=== PATIENT | female | born 1965 | race Caucasian/White ===

== ENCOUNTER 2023-09-18 10:24 | Day surgery (SDC) | payer BC ==
[~2023-09-18 10:24] MED LIST: Sodium Chloride 0.9% 10 ML Syringe FLUSH PRN; Sodium Chloride 0.9% 10 ML Syringe FLUSH SCH
[2023-09-18] MEDS ORDERED: Propofol 200 MG/20 ML SDV ONE (12:38)
[2023-09-18] MEDS ORDERED: Rocuronium 50 MG/5 ML Vial ONE (12:38)
[2023-09-18] MEDS ORDERED: Midazolam 1 MG/ML 2 ML SDV ONE (12:38)
[2023-09-18] MEDS ORDERED: fentaNYL 100 MCG/2 ML SDV ONE (12:38)
[2023-09-18] MEDS ORDERED: Lidocaine 2% 5 ML SDV ONE (12:39)
[2023-09-18] MEDS: Lactated Ringers 1,000 ML IV SCH (13:05)
[2023-09-18] MEDS ORDERED: Lidocaine 1% with EPINEPHrine 1:100,000 20 ML MDV ONE (13:35)
[2023-09-18] MEDS ORDERED: EPINEPHrine 1 MG/ML SDV ONE ×2 (13:36→14:57)
[2023-09-18] MEDS ORDERED: Ketorolac 30 MG/ML SDV ONE (14:07)
[2023-09-18] MEDS ORDERED: Ondansetron 4 MG/2 ML SDV ONE (14:07)
[2023-09-18] MEDS ORDERED: Neostigmine Methylsulfate 10 MG/10 ML MDV ONE (14:10)
[2023-09-18] MEDS: Scopalamine 1mg/3day Transdermal Patch TOP ONE (14:12)
[2023-09-18] MEDS: Acetaminophen 325 MG Tab PO ONE (14:13)
[2023-09-18] MEDS: Gabapentin 300 MG Cap PO ONE (14:14)
[2023-09-18] MEDS: Clindamycin Phosphate in D5W 900 MG in Premix Bag 1 BAG IV ONE (14:15)
[2023-09-18] MEDS ORDERED: Bupivacaine 0.5% 30 ML SDV ONE (14:58)
[2023-09-18] MEDS: Bupivacaine 0.5% 30 ML SDV ONE (15:17)
[2023-09-18] MEDS: Lidocaine 1% with EPINEPHrine 1:100,000 20 ML MDV ONE (15:17)
[2023-09-18] MEDS ORDERED: Lactated Ringers 1,000 ML IV ONE (15:30)
[2023-09-18] MEDS ORDERED: HYDROmorphone 0.5 MG/0.5 ML Syringe IVPUSH PRN (15:55)
[2023-09-18] MEDS ORDERED: Ondansetron 4 MG/2 ML SDV IVPUSH PRN (15:55)
[2023-09-18] MEDS ORDERED: Acetaminophen/oxyCODONE 325-5 MG Tab PO PRN (16:13)
== END 2023-09-18 20:25 | disposition home or self-care (01) ==
LOC: JD.SDS 10:24
PROVIDERS: ATTEND Surgery
DX: K80.10 Calculus of gallbladder with chronic cholecystitis without obstruction (principal); F32.A Depression, unspecified; F41.9 Anxiety disorder, unspecified; K21.9 Gastro-esophageal reflux disease without esophagitis; E66.01 Morbid (severe) obesity due to excess calories; Z68.41 Body mass index [BMI] 40.0-44.9, adult; Z79.899 Other long term (current) drug therapy; Z88.0 Allergy status to penicillin; Z91.048 Other nonmedicinal substance allergy status
CPT/HCPCS: 47562; A9270; J0171; J0665; J0736; J1885; J2250; J2405; J2704; J2710; J3010; J3490; J7120; 00790

== ENCOUNTER 2023-09-21 13:59 | Emergency (ER) | payer BC ==
[2023-09-21] MEDS: Sodium Chloride 0.9% 1,000 ML IV SCH (14:43)
[2023-09-21] MEDS: Sodium Chloride 0.9% 10 ML Syringe FLUSH PRN (14:43)
[2023-09-21] MEDS: Ondansetron 4 MG/2 ML SDV IVPUSH ONE (14:49)
[2023-09-21 15:20] LABS: BASOPHILS PERCENT AUTO 0.5 % (0.0-1.0); EOSINOPHILS ABSOLUTE AUTO 0.5 K/mm3 (0.0-0.4); EOSINOPHILS PERCENT AUTO 6.8 % (0.0-6.0); HEMATOCRIT 38.5 % (37.0-47.0); HEMOGLOBIN 12.3 gm/dl (12.0-16.0); IMMATURE GRAN ABSOLUTE AUTO 0.03 K/mm3 (0.00-0.05); IMMATURE GRAN PERCENT AUTO 0.5 % (0.0-0.4); LYMPHOCYTES ABSOLUTE AUTO 1.8 K/mm3 (1.0-4.8); LYMPHOCYTES PERCENT AUTO 27.1 % (24.0-44.0); MEAN CORPUSCULAR HEMOGLOBIN 27.7 pg (28.0-32.0); MEAN CORPUSCULAR HGB CONC 31.9 g/dl (32.0-36.0); MEAN CORPUSCULAR VOLUME 86.7 fl (83.0-99.0); MEAN PLATELET VOLUME 10.1 fl (9.4-12.3); MONOCYTES ABSOLUTE AUTO 0.5 K/mm3 (0.0-0.8); NEUTROPHILS ABSOLUTE AUTO 3.8 K/mm3 (1.8-7.7); NEUTROPHILS PERCENT AUTO 57.1 % (41.0-71.0); PLATELET COUNT,PLT 260 K/mm3 (150-400); RED BLOOD CELL COUNT 4.44 M/mm3 (4.10-5.30); WHITE BLOOD CELL COUNT,WBC 6.64 K/mm3 (3.9-11.3)
[2023-09-21 15:33] LABS: A/G RATIO 0.9 (1-2); ALBUMIN 3.2 g/dl (3.4-5.0); ANION GAP 11.8 (5-15); BILIRUBIN TOTAL 0.9 mg/dL (0.2-1.0); CALCIUM 9.7 mg/dL (8.5-10.1); EST CRCL DRUG DOSING (CG) 56.71 mL/min; MAGNESIUM 2.1 mg/dL (1.8-2.4); POTASSIUM,K 3.8 mEq/L (3.5-5.1); PROTEIN TOTAL,TP 6.9 g/dl (6.4-8.2)
== END 2023-09-21 16:47 | disposition home or self-care (01) ==
LOC: JD.ED 13:59
DX: R03.0 Elevated blood-pressure reading, without diagnosis of hypertension (principal); R42 Dizziness and giddiness; R40.0 Somnolence; T39.1X5A Adverse effect of 4-Aminophenol derivatives, initial encounter; T40.2X5A Adverse effect of other opioids, initial encounter; E66.9 Obesity, unspecified; Z90.49 Acquired absence of other specified parts of digestive tract; Z90.710 Acquired absence of both cervix and uterus; Z68.41 Body mass index [BMI] 40.0-44.9, adult; Z88.0 Allergy status to penicillin; Z91.048 Other nonmedicinal substance allergy status
CPT/HCPCS: 36415; 71045; 80053; 83735; 84484; 85025; 93005; 96361; 96374; 99284; J2405; J3490; J7030; 93010

== ENCOUNTER 2024-03-31 19:35 | Emergency (ER) | payer BC, OTHER ==
[2024-03-31] MEDS ORDERED: Sodium Chloride 0.9% 10 ML Syringe FLUSH PRN (20:00)
[2024-03-31 21:15] LABS: BASOPHILS PERCENT AUTO 0.4 % (0.0-1.0); EOSINOPHILS ABSOLUTE AUTO 0.1 K/mm3 (0.0-0.4); EOSINOPHILS PERCENT AUTO 1.1 % (0.0-6.0); HEMATOCRIT 44.3 % (37.0-47.0); HEMOGLOBIN 13.9 gm/dl (12.0-16.0); IMMATURE GRAN ABSOLUTE AUTO 0.04 K/mm3 (0.00-0.05); IMMATURE GRAN PERCENT AUTO 0.4 % (0.0-0.4); LYMPHOCYTES ABSOLUTE AUTO 1.4 K/mm3 (1.0-4.8); LYMPHOCYTES PERCENT AUTO 14.6 % (24.0-44.0); MEAN CORPUSCULAR HEMOGLOBIN 26.7 pg (28.0-32.0); MEAN CORPUSCULAR HGB CONC 31.4 g/dl (32.0-36.0); MEAN CORPUSCULAR VOLUME 85.2 fl (83.0-99.0); MEAN PLATELET VOLUME 9.7 fl (9.4-12.3); MONOCYTES ABSOLUTE AUTO 0.6 K/mm3 (0.0-0.8); MONOCYTES PERCENT AUTO 6.6 % (0.0-8.0); NEUTROPHILS ABSOLUTE AUTO 7.3 K/mm3 (1.8-7.7); NEUTROPHILS PERCENT AUTO 76.9 % (41.0-71.0); PLATELET COUNT,PLT 287 K/mm3 (150-400); WHITE BLOOD CELL COUNT,WBC 9.45 K/mm3 (3.9-11.3)
[2024-03-31 21:34] LABS: A/G RATIO 0.9 (1-2); ALANINE AMINOTRANSFERASE,ALT 19 U/L (14-59); ALBUMIN 3.7 g/dl (3.4-5.0); ALKALINE PHOSPHATASE 97 U/L (46-116); ANION GAP 13.6 (5-15); ASPARTATE AMNIOTRANSFERASE,AST 18 U/L (15-37); BILIRUBIN TOTAL 0.4 mg/dL (0.2-1.0); BLOOD UREA NITROGEN,BUN 17 mg/dL (7-18); CALCIUM 10.1 mg/dL (8.5-10.1); CARBON DIOXIDE,CO2 28 mEq/L (21-32); CHLORIDE,CL 104 mEq/L (98-107); EST CRCL DRUG DOSING (CG) 56.71 mL/min; ESTIMATED GFR 65 mL/min (>60); GLUCOSE RANDOM 108 mg/dL (70-99); POTASSIUM,K 3.6 mEq/L (3.5-5.1); PROTEIN TOTAL,TP 7.9 g/dl (6.4-8.2); SODIUM,NA 142 mEq/L (136-145); TROPONIN I HIGH SENSITIVITY < 4 pg/mL (<=51); TSH 3.751 uIU/mL (0.358-3.74)
[2024-03-31 21:50] LABS: T4 FREE 0.83 ng/dL (0.76-1.46)
== END 2024-03-31 22:47 | disposition home or self-care (01) ==
LOC: JD.ED 19:35
DX: R00.2 Palpitations (principal); R03.0 Elevated blood-pressure reading, without diagnosis of hypertension; E66.9 Obesity, unspecified; Z68.41 Body mass index [BMI] 40.0-44.9, adult; Z90.49 Acquired absence of other specified parts of digestive tract; Z90.710 Acquired absence of both cervix and uterus; Z91.048 Other nonmedicinal substance allergy status; Z88.0 Allergy status to penicillin; Z88.8 Allergy status to other drugs, medicaments and biological substances
CPT/HCPCS: 36415; 71046; 71046-26; 80053; 84439; 84443; 84484; 85025; 85379; 93005; 93010; 93246; 99284; 99285